=== PATIENT | female | born 1995 | race Caucasian/White ===

== ENCOUNTER 2021-10-31 17:47 | Inpatient (IN) | payer OTHER ==
[~2021-10-31 17:47] MED LIST: AMOXICILLIN500 M1 PO; PRENATAL TABLE1 EAC1 PO; PRENATAL VITAM1 EAC8 PO; VITAMIN B-6250 MG PO
[2021-10-31 19:33] LABS: RED BLOOD COUNT 3.82 M/UL (4.00-5.10); WHITE BLOOD COUNT 8.4 K/UL (4.5-11.0)
[2021-11-01] MEDS ORDERED: IBUPROFEN600 MG PO (01:12)
[2021-11-01] MEDS ORDERED: FEROSUL325 MG PO (01:12)
[2021-11-02 04:30] LABS: HEMOGLOBIN 7.5 gm/dl (12.3-15.3)
== END 2021-11-02 10:13 | disposition home or self-care (01) | DRG 807 ==
LOC: GENOP 17:47 → OB 18:53
PROVIDERS: ADMIT Obstetrics & Gynecology
PROC: 4A1HXCZ Monitoring of Products of Conception, Cardiac Rate, External Approach (ICD-10-PCS; 2021-10-31)
PROC: 10E0XZZ Delivery of Products of Conception, External Approach (ICD-10-PCS; principal; 2021-11-01)
DX: O75.3 Other infection during labor (principal); Z37.0 Single live birth; K04.7 Periapical abscess without sinus; Z3A.37 37 weeks gestation of pregnancy; Z20.822 Contact with and (suspected) exposure to COVID-19; Z87.891 Personal history of nicotine dependence
CPT/HCPCS: 36415; 80307; 82800; 85014; 85018; 85025; J2590; J7120; U0002